=== PATIENT | female | born 1995 | race American Indian/Alaskan Native ===

== ENCOUNTER 2016-03-22 12:48 | Inpatient (IN) | payer MEDICAID ==
--- NOTE | 2016-03-22 14:49 | History and Physical Report ---
History of Present Illness Date of examination: 03/22/16 Date of admission: 03/22/16 12:48 Chief complaint: Pt sent from the office for BP management History of present illness: Pt is a 20yo BF EDC 06/24/16; EGA 26 4/ weeks sent from the office for BP management. BP was 146/98 in the office and complained of epigastric pains that has now resolved. She denies headaches or blurred vision, and was supposed to be taking Labetolol 100mg BID - but is non-compliant. She received care at [facility] since 12 weeks but has been non-compliant with her medications. She has a history of Preeclampsia with her previous , and also a previous C Section. records are available. Past History Past Medical History: hypertension, diabetes, seizure, hematologic disorders ( sickle cell trait) Past Surgical History: section Family/Genetic History: hypertension Social history: no significant social history, single - Obstetrical History Expected Date of Delivery: 06/24/16 Actual Gestation: 26 Week(s) 4 Day(s) : 2 Medications and Allergies Allergies Allergy/AdvReac Type Severity Reaction Status Date / Time shellfish derived Allergy Swelling Verified 09/12/13 15:34 Home Medications Medication Instructions Recorded Confirmed Last Taken Type Vit No.130/Iron/FA 1 each PO QDAY #30 tablet 11/26/15 Unknown Rx [ Tablet] Review of Systems All systems: negative - Vital Signs Vital signs: Vital Signs Pulse BP 87 116/58 03/22/16 13:28 03/22/16 13:28 Temp Pulse Resp BP Pulse Ox 98.0 F 87 18 116/58 03/22/16 14:38 03/22/16 14:38 03/22/16 14:38 03/22/16 14:38 - Physical Exam Breasts: Positive: deferred Cardiovascular: Regular rate Lungs: Positive: Clear to auscultation Abdomen: Positive: normal appearance Uterus: Positive: enlarged Extremities: Positive: normal - Obstetrical FHR: category 1 Uterine Contraction Monitor Mode: External Results All other labs normal. Assessment and Plan - Patient Problems (1) Preeclampsia Diagnosis Date: 03/22/16 Current Visit: No Status: Suspected Qualifiers: Trimester: second trimester Qualified Code(s): O14.92 - Unspecified pre- eclampsia, second trimester (2) 26 weeks gestation of Diagnosis Date: 03/22/16 Current Visit: Yes Status: Acute Plan to address problem: A: IUP @ 26 4/7 weeks Chronic hypertension Suspect superimposed preeclampsia P: Admit for Observation and BP management Obtain CBC, PIH labs, 24hr urine for protein APA consultation
[2016-03-22] MEDS ORDERED: TYLENOL PO PRN (15:03)
[2016-03-22] MEDS ORDERED: MILK OF MAGNESIA PO PRN (15:03)
[2016-03-22] MEDS ORDERED: SENOKOT S PO PRN (15:03)
[2016-03-22] MEDS ORDERED: AMBIEN PO PRN (15:03)
[2016-03-22] MEDS ORDERED: COLACE PO PRN (15:03)
[2016-03-22] MEDS ORDERED: ZOFRAN IV PRN (15:03)
[2016-03-22] MEDS ORDERED: LACTATED RINGERS 1,000 ML IV SCH (16:00)
[2016-03-22] MEDS: CELESTONE SOLUSPAN IM SCH (18:12)
[2016-03-22 22:35] LABS: Basophils % (Auto) 0.1 % (0.0-1.8); Eosinophils % (Auto) 0.5 % (0.0-4.3); Hematocrit 35.4 % (30.3-42.9); Hemoglobin 11.8 gm/dl (10.1-14.3); Mean Corpuscular HGB Conc 33 % (30-34); Mean Corpuscular Hemoglobin 28 pg (28-32); Mean Corpuscular Volume 83 fl (79-97); Platelet Count 212 K/mm3 (140-440); Red Blood Count 4.29 M/mm3 (3.65-5.03); Red Cell Distribution Width 14.1 % (13.2-15.2); White Blood Count 9.8 K/mm3 (4.5-11.0)
[2016-03-22] MEDS: NORMODYNE PO SCH (22:48)
[2016-03-22 23:02] LABS: Alanine Aminotransferase 11 units/L (7-56); Albumin/Globulin Ratio 0.8 %; Alkaline Phosphatase 73 units/L (35-129); Anion Gap 20 mmol/L; Bilirubin,Total 0.2 mg/dL (0.1-1.2); Blood Urea Nitrogen 5 mg/dL (7-17); Calcium 8.7 mg/dL (8.4-10.2); Carbon Dioxide 18 mmol/L (22-30); Chloride 101.7 mmol/L (98-107); Glucose 112 mg/dL (65-100); Potassium 4.3 mmol/L (3.6-5.0); Sodium 135 mmol/L (137-145); Total Protein 6.6 g/dL (6.3-8.2)
--- NOTE | 2016-03-23 09:12 | Admit Criteria Form ---
Admission Criteria Documentation: OBSTETRIC AND GYNECOLOGIC DISEASE GRG Clinical Indications for Admission to Inpatient Care (Place 'X' for any and all applicable criteria): Hospital admission is needed for appropriate care of the patient because of ANY ONE of the following (1)(2)(3): [ ]I. Hemodynamic instability, as indicated by ALL of the following (1)(2)(3)( 4)(5): [ ]a) Vital signs or other findings not as expected for chronic patient condition or baseline [ ]b) Instability indicated by ANY ONE of the following: [ ]i) Hypotension [ ]ii) Symptomatic tachycardia unresponsive to treatment (eg, analgesia, fluids, sedation as indicated) [ ]iii) Inadequate perfusion indicated by ANY ONE of the following: [ ]A. Lactic acidosis (greater than 2 mmol/ L) [ ]B. New abnormal capillary refill ( greater than 3 seconds) [ ]C. Reduced urine output [ ]D. New altered mental status [ ]iv) Orthostatic vital sign changes unresponsive to treatment (eg, fluids) [ ]v) Multiple IV fluid boluses required to maintain adequate blood pressure or perfusion [ ]vi) IV inotropic or vasopressor medication required to maintain adequate blood pressure or perfusion [ ]II. Obstetric infection requiring hospitalization indicated by ANY ONE of the following(13)(14): [ ]a) Chorioamnionitis [ ]b) Endometritis (except mild endometritis) [ ]c) Pelvic abscess [ ]d) Peritonitis [ ]e) Septic pelvic thrombophlebitis [ ]III. Amniotic fluid or pulmonary embolism(4)(5)(6) [ ]IV. Suspected peritonitis or ectopic requiring monitoring beyond scope of 24 hours or observation care(7)(8) [ ]V. compromise requiring hospitalization indicated by ALL of the following(9)(10): [ ]a) compromise indicated by ANY ONE of the following(11): [ ]i) Abnormal heart rate monitoring [ ]ii) Abnormal contraction stress test [ ]iii) Abnormal biophysical profile [ ]iv) Abnormal Doppler flow in vessels (ie, Doppler velocimetry) (12) [ ]b) Persistence of compromise indicators during evaluation and observation monitoring [ ]. Ovarian hyperstimulation syndrome requiring hospitalization[A] indicated by ALL of the following(15): [ ]a) Recent ovarian stimulation with gonadotropins, or evidence on ultrasound of spontaneous emergence of large number of ovarian follicles [ ]b) Evidence of severe ovarian hyperstimulation syndrome indicated by ANY ONE of the following: [ ]i) Abdominal pain unresponsive to oral therapy [ ]ii) Acute respiratory distress syndrome [ ]iii) Electrolyte imbalance ( eg, hyponatremia, hyperkalemia) [ ]iv) Elevated liver enzymes [ ]v) Evidence of thromboembolism [ ]vi) Hemoconcentration (hematocrit greater than 45 % (0.45)) [ ]vii) Inability to maintain oral intake adequate to prevent hemoconcentration [ ]viii) Marked hypotension from baseline (eg, SBP 20 mmHg below patients usual pressure) [ ]ix) Oliguria or anuria [ ]x) Ovarian torsion [ ]xi) Pleural or pericardial effusion on x-ray or echocardiogram [ ]xii) Rapid increase in serum creatinine to greater than 1.2 mg/dL (106 micromoles/L) or creatinine clearance less than 50 mL/min/1.73m2 (0.84 mL/ sec/1.73m2) [ ]xiii) Ruptured ovarian cyst with hemorrhage [ ]xiv) Severe abdominal pain or peritoneal signs [ ]xv) Tense ascites that cannot be managed with paracentesis in outpatient setting [ ]VII.Pelvic infection requiring hospitalization indicated by ANY ONE of the following (16): [ ]a) Outpatient treatment has failed or is not appropriate (eg, inpatient monitoring required) [ ]b) Pelvic abscess [ ]c) Surgical emergency cannot be excluded (eg, rigid abdomen) [ ]d) Vomiting precluding outpatient and observation care management VIII. loss complications requiring inpatient medical treatment indicated by ANY ONE of the following (4)(7)(9): [ ]a) Fever [ ]b) Peritonitis [ ]c) Sepsis [ ]d) Severe abdominal pain [ ]IX. or patient requiring monitoring for severe heart failure, pulmonary disease, or other comorbid condition (eg, peripartum cardiomyopathy) (4)(17) [ ]X. patient with rupture of membranes requiring hospitalization indicated by ANY ONE of the following: [ ]a) Chorioamnionitis, cloudy amniotic fluid, or other evidence of infection [ ]b) compromise or other need for monitoring (11) [ ]c) Gestation longer than 23 weeks and ANY ONE of the following: [ ]i) Abnormal (noncephalic) presentation [ ]ii) Inadequate home environment (eg, home too far from hospital, unable to rapidly return to hospital) [ ]d) Temperature greater than 100.4 degrees F (38 degrees C)( oral) [ ]e) Threatened labor requiring monitoring beyond scope (eg, over 24 hours) of observation Care [ ] XI. complications, including severe lacerations, infections, or retained placenta (19) [ ] XII.Uterine bleeding with high-risk features indicated by ANY ONE of the following (4): [ ]a) Active major hemorrhage (eg, hemorrhage) [ ]b) Coagulopathy with active bleeding [ ]c) Gestational trophoblastic disease (eg, molar ) (20 ) [ ]d) (longer than 23 weeks) and ANY ONE of the following: [ ]i) Pain [ ]ii) Placental abruption, known or suspected [ ]iii) Placenta accrete, known or suspected(21) [ ]iv) Placenta previa, known or suspected [ ]v) Vasa previa [ ]e) Severe anemia [X ]XIII. Obstetric or Gynecologic Disease, condition or symptom for which ANY ONE of the following: [X ]a) Emergency and observation care have failed or are not considered appropriate ( Also use General Criteria: Observation Care Criteria as appropriate) [ ]b) Presence of a General Admission Criteria or Pediatric General Admission Criteria The original [facility] [employer] [facility] content [facility] by [facility] has been revised. The portions of the content which have been revised are identified through the use of italic text or in bold, and [facility] has neither reviewed nor approved the modified material.All other unmodified content is copyright [facility]. Please see references footnoted in the original [facility] edition 2016 Admission Criteria Met: Yes
[2016-03-23] MEDS: NORMODYNE PO SCH (09:54)
[2016-03-23] MEDS ORDERED: PRENATAL VITAMIN PO SCH (10:00)
--- NOTE | 2016-03-23 10:44 | Progress Note ---
Assessment and Plan - Patient Problems (1) Preeclampsia Diagnosis Date: 03/22/16 Current Visit: No Status: Suspected Qualifiers: Trimester: second trimester Qualified Code(s): O14.92 - Unspecified pre- eclampsia, second trimester (2) 26 weeks gestation of Diagnosis Date: 03/22/16 Current Visit: Yes Status: Acute Plan to address problem: A: IUP @ 26 5/7 weeks Chronic hypertension - stable on Labetolol 100mg BID Suspect superimposed preeclampsia - awaiting 24hr urine P: Continue present management Awaiting results of 24hr urine Subjective - Subjective Date of service: 03/23/16 Principal diagnosis: IUP @ 26 5/7 weeks; Chronic hypertension; Suspect superimposed preeclampsia Interval history: Pt is feeling well without complaints. She denies headaches, blurred vision or epigastric pains. BP's 100-130/52-61 on Labetolol 100mg BID. Patient reports: movement normal, no new complaints, no loss of fluid, no vaginal bleeding, no contractions Objective - Vital Signs Vital Signs: Vital Signs - 12hr 03/22/16 03/22/16 03/23/16 22:48 22:56 01:34 Temperature Pulse Rate 84 89 Pulse Rate [ From Monitor] Respiratory 20 Rate Blood Pressure 129/58 129/66 Blood Pressure [Left Arm] 03/23/16 03/23/16 03/23/16 03:34 05:41 07:59 Temperature Pulse Rate 81 73 86 Pulse Rate [ From Monitor] Respiratory Rate Blood Pressure 100/52 119/60 130/61 Blood Pressure [Left Arm] 03/23/16 03/23/16 08:19 10:35 Temperature 98.2 F Pulse Rate 95 H Pulse Rate [ 86 From Monitor] Respiratory 18 Rate Blood Pressure 115/56 Blood Pressure 130/61 [Left Arm] - Exam Cardiovascular: Regular rate Abdomen: Present: normal appearance, soft Uterus: Present: normal FHR: category 1 Uterine Contraction Monitor Mode: External - Labs Labs: Abnormal Labs 03/22/16 03/22/16 21:27 21:27 Seg Neutrophils % 81.7 H Seg Neutrophils # 8.0 H Sodium 135 L Carbon Dioxide 18 L BUN 5 L Creatinine 0.5 L Glucose 112 H Albumin 3.0 L Laboratory Results - last 24 hr 03/22/16 03/22/16 03/22/16 21:27 21:27 21:27 WBC 9.8 RBC 4.29 Hgb 11.8 Hct 35.4 MCV 83 MCH 28 MCHC 33 RDW 14.1 Plt Count 212 Lymph % (Auto) 13.6 P[place] % (Auto) 4.1 Eos % (Auto) 0.5 Baso % (Auto) 0.1 Lymph # 1.3 Pinal # 0.4 Eos # 0.0 Baso # 0.0 Seg Neutrophils % 81.7 H Seg Neutrophils # 8.0 H Sodium 135 L Potassium 4.3 Chloride 101.7 Carbon Dioxide 18 L Anion Gap 20 BUN 5 L Creatinine 0.5 L Estimated GFR > 60 BUN/Creatinine Ratio 10.00 Glucose 112 H Calcium 8.7 Total Bilirubin 0.2 AST 17 ALT 11 Alkaline Phosphatase 73 Total Protein 6.6 Albumin 3.0 L Albumin/Globulin Ratio 0.8 Blood Type O POSITIVE Antibody Screen Negative
[2016-03-23] MEDS: CELESTONE SOLUSPAN IM SCH (18:17)
[2016-03-23 18:35] VITALS: BP 190/95
--- NOTE | 2016-03-23 19:09 | Discharge Summary ---
Providers - Providers Date of Admission: 03/22/16 12:48 Date of discharge: 03/23/16 Attending physician: ANDREA VALE MD 03/22/16 15:03 Consult to Physician [CONS] Routine Consulting Provider: HALINA MAIER Reason For Exam: IUP @ 26 weeks; Chronic hypertension Place consult to:: DAVIDSON Notified:: ALETHEA Phone number called:: [phone] Was contact made?: Yes If yes, spoke with:: Alethea Time called:: 15:09 Primary care physician: ANDREA VALE MD Hospitalization Reason for admission: IUP - , observation, other (Chronic hypertension) Other procedures: none complications: none Discharge diagnosis: other (IUP @ 26 5/7 weeks; Chronic hypertension - improved ) Hospital course: Pt is a 20yo BF EDC 06/24/16; EGA 26 5/7 weeks who was sent from the office for BP management. BP was 146/98 in the office and complained of epigastric pains that has now resolved. She denied headaches or blurred vision , and was supposed to be taking Labetolol 100mg BID - but is non-compliant. She received care at [facility] since 12 weeks but has been non- compliant with her medications. She has a history of Preeclampsia with her previous , and also a previous C Section. She was admitted for BP monitoring and BP remained stable, PIH labs were WNL and 24hr urine had 245mg protein. Discussed with Dr Zavaleta to discharge pt to home in stable condition. Labetolol changed to Aldomet 250mg BID. She will follow up in [facility]'s office in 4 days. Condition at discharge: Good Disposition: DISCHARGED TO HOME OR SELFCARE - Discharge Diagnoses (1) Preeclampsia Status: Suspected Qualifiers: Trimester: second trimester Qualified Code(s): O14.92 - Unspecified pre- eclampsia, second trimester (2) 26 weeks gestation of Status: Acute Plan - Discharge Medications Prescriptions: Methyldopa [Aldomet] 250 mg PO BID #60 tablet - Provider Discharge Summary Activity: routine, no sex for 6 weeks, no heavy lifting 4 weeks, no strenuous exercise Diet: routine Instructions: routine Additional instructions: [] Smoking cessation referral if applicable(refer to patient education folder for contact #) [] Refer to [facility] Booklet Call your doctor immediately for: * Fever > 100.5 * Heavy vaginal bleeding ( >1 pad per hour) * Severe persistent headache * Shortness of breath * Reddened, hot, painful area to leg or breast * Drainage or odor from incision. * Keep incision clean and dry at all times and follow doctor's instructions regarding bathing/showering - Follow up plan Follow up: ANDREA TRACY MD [Primary Care Provider] - 3 Days
== END 2016-03-23 19:04 | disposition home or self-care (01) | DRG 781 ==
LOC: OBSVTOIN 12:48 → LD 12:48
PROVIDERS: ADMIT Obstetrics & Gynecology; ATTEND Obstetrics & Gynecology
DX: O11.2 Pre-existing hypertension with pre-eclampsia, second trimester (principal); O24.312 Unspecified pre-existing diabetes mellitus in pregnancy, second trimester; E11.9 Type 2 diabetes mellitus without complications; O99.352 Diseases of the nervous system complicating pregnancy, second trimester; O99.012 Anemia complicating pregnancy, second trimester; D57.3 Sickle-cell trait; O34.219 Maternal care for unspecified type scar from previous cesarean delivery; R10.13 Epigastric pain; O26.892 Other specified pregnancy related conditions, second trimester; Z3A.26 26 weeks gestation of pregnancy; Z91.19 Patient's noncompliance with other medical treatment and regimen; Z91.013 Allergy to seafood; O10.912 Unspecified pre-existing hypertension complicating pregnancy, second trimester
CPT/HCPCS: 36415; 80053; 84156; 85025; 86850; 86900; 86901; J0702; J7120

== ENCOUNTER 2016-05-06 20:55 | Outpatient (CLI) | payer MEDICAID ==
[2016-05-06] MEDS ORDERED: LACTATED RINGERS 500 ML IV ONE (20:57)
[2016-05-06 22:30] LABS: Bilirubin,Urine NEG (Negative); Blood,Urine NEG (Negative); Ketones,Urine NEG (Negative); Leukocyte Esterase,Urine NEG (Negative); Mucus,Urine FEW /HPF; Nitrite,Urine NEG (Negative); Protein,Urine <15 mg/dL mg/dL (Negative); Urobilinogen,Urine < 2.0 mg/dL (<2.0)
[2016-05-06 22:31] VITALS: BP 101/57
[2016-05-06] MEDS ORDERED: VISTARIL PO ONE (22:42)
== END 2016-05-06 22:56 | disposition home or self-care (01) ==
LOC: TRG 20:55
PROVIDERS: ATTEND Obstetrics & Gynecology
DX: O26.893 Other specified pregnancy related conditions, third trimester (principal); O21.2 Late vomiting of pregnancy; R10.9 Unspecified abdominal pain; R51 Headache; Z3A.37 37 weeks gestation of pregnancy
CPT/HCPCS: 59025; 81001; Q0177

== ENCOUNTER 2016-06-19 08:41 | Inpatient (IN) | payer MEDICAID ==
[2016-06-19] MEDS ORDERED: BICITRA PO NR (10:00)
[2016-06-19] MEDS ORDERED: REGLAN IV NR (10:00)
[2016-06-19] MEDS ORDERED: ANCEF/STERILE WATER 2 GM/20 ML 2 GM/20 ML SYRINGE IV NR (10:00)
[2016-06-19] MEDS ORDERED: PITOCin/NS 20 UNIT/1000ML DRIP 20 UNITS/1,000 ML BAG IV SCH ×2 (10:00→14:00)
[2016-06-19] MEDS ORDERED: PEPCID IV NR (10:00)
[2016-06-19 10:03] LABS: Basophils % (Auto) 0.2 % (0.0-1.8); Eosinophils % (Auto) 0.5 % (0.0-4.3); Hemoglobin 11.2 gm/dl (10.1-14.3); Mean Corpuscular HGB Conc 33 % (30-34); Mean Corpuscular Hemoglobin 27 pg (28-32); Mean Corpuscular Volume 82 fl (79-97); Platelet Count 194 K/mm3 (140-440); Red Blood Count 4.13 M/mm3 (3.65-5.03); Red Cell Distribution Width 14.5 % (13.2-15.2); White Blood Count 7.3 K/mm3 (4.5-11.0)
--- NOTE | 2016-06-19 10:48 | Anesthesia Consultation ---
Anesthesia Consult and Med Hx Date of service: 06/19/16 - Airway Anesthetic Teeth Evaluation: Good ROM Head & Neck: Adequate Mallampati Class: Class III Intubation Access Assessment: Possibly Difficult - Pre-Operative Health Status ASA Pre-Surgery Classification: ASA3 Proposed Anesthetic Plan: Epidural, Spinal - Pulmonary Hx Asthma: No COPD: No Hx Pneumonia: No - Cardiovascular System Hx Hypertension: Yes (was taking labetalol, then stopped) - Central Nervous System Hx Seizures: No Hx Psychiatric Problems: No - Endocrine Hx Renal Disease: No Hx End Stage Renal Disease: No Hx Non-Insulin Dependent Diabetes: Yes (gestational) Hx Hypothyroidism: No Hx Hyperthyroidism: No - Hematic Hx Anemia: No Hx Sickle Cell Disease: No - Other Systems Hx Alcohol Use: No Hx Obesity: Yes (BMI 64)
--- NOTE | 2016-06-19 10:49 | Anesthesia Day of Surgery ---
Anesthesia Day of Surgery - Day of Surgery Patient Examined: Yes Patient H&P Reviewed: Yes Patient is NPO: Yes
[2016-06-19] MEDS: LACTATED RINGERS 1,000 ML IV SCH ×2 (10:59→11:00)
[2016-06-19] MEDS ORDERED: SODIUM CHLORIDE FLUSH SYRINGE 10 ML IV PRN (11:00)
--- NOTE | 2016-06-19 11:05 | History and Physical Report ---
History of Present Illness Date of examination: 06/19/16 Date of admission: 06/19/16 08:41 Chief complaint: Repeat C Section History of present illness: Pt is a 20yo BF EDC 06/24/16; EGA 39 2/7 weeks presents to L&D for a Repeat C Section. She received care at [facility] since 12 weeks and was treated for Chronic Hypertension and started on Labetolol 100mg BID which she discontinued on her own in March 2016. course has been unremarkable except for Morbid Obesity, and baby is for adoption. records are available, and GBS is positive. 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 History: chlamydia, herpes, trichomonas Family/Genetic History: hypertension, other (seizure disorder) Social history: no significant social history, single - Obstetrical History Expected Date of Delivery: 06/24/16 Actual Gestation: 39 Week(s) 2 Day(s) : 2 Medications and Allergies Allergies Allergy/AdvReac Type Severity Reaction Status Date / Time shellfish derived Allergy Swelling Verified 09/12/13 15:34 Home Medications Medication Instructions Recorded Confirmed Last Taken Type Vit No.130/Iron/FA 1 each PO QDAY #30 tablet 11/26/15 Unknown Rx [ Tablet] Methyldopa [Aldomet] 250 mg PO BID #60 tablet 03/23/16 Unknown Rx Ferrous Sulfate [Feosol 325 MG tab] 325 mg PO BID #60 tablet 06/19/16 Unknown Rx HYDROcodone/APAP 5-325 [Paicines 1 each PO Q6HR PRN #30 tablet 06/19/16 Unknown Rx 5/325] Ibuprofen [Motrin] 800 mg PO Q8HR PRN #30 tablet 06/19/16 Unknown Rx Vit W-Ca,Fe,FA(<1 mg) 1 each PO DAILY #30 tablet 06/19/16 Unknown Rx [ Vitamins] Active Meds: Active Medications Citric Acid/Sodium Citrate (Bicitra) 30 ml PO ONCE NR Stop: 06/19/16 18:00 Diphenhydramine HCl (Benadryl) 12.5 mg IV Q2H PRN PRN Reason: Itching Famotidine (Pepcid) 20 mg IV ONCE NR Stop: 06/19/16 18:00 Hydromorphone HCl (Dilaudid) 0.5 mg IV Q4H PRN PRN Reason: breakthrough pain > 7/10 Cefazolin Sodium (Ancef/Sterile Water 2 Gm/20 Ml) 2 gm in 20 mls @ 80 mls/hr IV PREOP NR PRN Reason: Protocol Stop: 06/19/16 18:00 Lactated Ringer's (Lactated Ringers) 1,000 mls @ 2,250 mls/hr IV PREOP STANLEY Stop: 06/20/16 10:27 Last Admin: 06/19/16 11:00 Dose: 2,250 mls/hr Oxytocin/Sodium Chloride (Pitocin/Ns 20 Unit/1000ml Drip) 20 units in 1,000 mls @ 0 mls/hr IV TITR STANLEY PRN Reason: As Directed Influenza Virus Vaccine Quadrival (Fluarix Quad [id number](36 Mos+)) 60 mcg IM .ONCE ONE Stop: 06/19/16 10:39 Ketorolac Tromethamine (Toradol) 30 mg IV Q6H PRN PRN Reason: Pain, Moderate (4-6) Stop: 06/24/16 10:48 Metoclopramide HCl (Reglan) 10 mg IV ONCE NR Stop: 06/19/16 18:00 Naloxone HCl (Narcan 0.4 Mg/1 Ml) 0.2 mg IV Q2MIN PRN PRN Reason: Res Rate </= 8 or 02 SAT < 92% Stop: 06/21/16 10:50 Ondansetron HCl (Zofran) 4 mg IV Q8H PRN PRN Reason: Nausea And Vomiting Sodium Chloride (Sodium Chloride Flush Syringe 10 Ml) 10 ml IV PRN NR Review of Systems All systems: negative - Vital Signs Vital signs: Vital Signs Pulse BP 81 108/82 06/19/16 09:36 06/19/16 09:36 Temp Pulse Resp BP Pulse Ox 97.8 F 89 20 108/82 99 06/19/16 10:31 06/19/16 10:41 06/19/16 10:31 06/19/16 10:31 06/19/16 10:41 - Physical Exam Breasts: Positive: deferred Cardiovascular: Regular rate Lungs: Positive: Clear to auscultation Abdomen: Positive: normal appearance, soft Genitourinary (Female): Positive: normal external genitalia Uterus: Positive: enlarged Extremities: Positive: normal - Obstetrical FHR: category 1 Results Result Diagrams: 06/19/16 09:52 Abnormal lab results 06/19/16 Range/Units 09:52 MCH 27 L (28-32) pg [place] % (Auto) 8.6 H (0.0-7.3) % All other labs normal. Assessment and Plan - Patient Problems (1) 39 weeks gestation of Onset Date: 06/19/16 Current Visit: Yes Status: Acute Plan to address problem: A: IUP @ 39 2/7 weeks Previous C Section Morbid Obesity Chronic hypertension - not on meds GBS Positive P: Admit to L&D for Repeat C Section (2) Previous delivery affecting Onset Date: 06/19/16 Current Visit: Yes Status: Acute (3) Morbid obesity Onset Date: 06/19/16 Current Visit: No Status: Chronic Qualifiers: Obesity type: unspecified obesity type Qualified Code(s): E66.01 - Morbid ( severe) obesity due to excess calories
[2016-06-19] MEDS ORDERED: MORPHINE ONE (11:28)
[2016-06-19] MEDS ORDERED: ePHEDrine SULFATE ONE (11:49)
[2016-06-19] MEDS ORDERED: TORADOL IV PRN (12:00)
[2016-06-19] MEDS ORDERED: DILAUDID IV PRN (12:00)
[2016-06-19] MEDS ORDERED: ZOFRAN IV PRN (12:00)
[2016-06-19] MEDS ORDERED: NARCAN 0.4 MG/1 ML IV PRN ×2 (12:00→13:09)
[2016-06-19] MEDS ORDERED: NACL 0.9% IR ONE (12:03)
[2016-06-19] MEDS ORDERED: WATER FOR IRRIG STERILE IR ONE (12:03)
[2016-06-19] MEDS ORDERED: NACL 0.9% 1000 ML 1,000 ML ONE ×2 (12:10→12:55)
[2016-06-19] MEDS ORDERED: ZOFRAN ONE (12:20)
--- NOTE | 2016-06-19 13:04 | Operative Report ---
Operative Report Operative Report: Date of procedure: 06/19/2016 Pre-operative diagnosis: 1. Intrauterine at 39-2/7 weeks 2. Previous section 3. Chronic hypertension 4. Morbid obesity 5. Positive group B strep Post-operative diagnosis: Same Procedure name(s): Repeat low transverse section Surgeon: Gary Rock MD Guest Specialist: None Anesthesia: Spinal anesthesia by Dr. Clifford EBL: 600 mL's Findings: A 3230 g male Apgars 8 at 1 minute 9 at 5 minutes. Nuchal cord 1. Clear amniotic fluid. Normal uterus. Normal tubes and ovaries bilaterally. Procedure: After the patient was prepped and draped in usual sterile fashion, and after satisfactory level of epidural anesthesia was obtained, the skin knife was used to make a transverse skin incision through the previous skin scar. The incision was excised down to layer of the fascia, which was nicked in the midline and extended laterally using the Bovie cautery. The rectus muscles were dissected off the rectus fascia both superiorly and inferiorly. The rectus bellies in the midline, and the peritoneum was entered under direct visualization. The peritoneal incision was extended superiorly and inferiorly. A bladder flap was created and the bladder blade was then placed. The uterus was scored in a curvilinear linear fashion, entered in the midline revealing clear amniotic fluid. The infant's head was delivered onto the surgical field with the aid of a vacuum (1 pull, no pop-offs), nuchal cord 1 easily reduced and the oropharynx and nasopharynx were bulb suctioned. The rest of the 's body was delivered, cord was doubly clamped and cut and the infant was handed to the waiting respiratory team. Cord blood was then obtained. The placenta was manually removed from the uterus, and the uterus removed from its normal anatomical position. After gentle uterine lavage, the incision was inspected and found to be without extensions. It was then closed in 2 layers using 0 Vicryl suture in a running interlocking fashion, the second layer imbricating the first. After good hemostasis was achieved, copious amounts or irrigation was performed, and the gutters were suctioned free of blood and blood clots. The Tisseel sealant was sprayed across the uterine incision. The uterus was then returned to its normal anatomical position, and after excellent hemostasis assured, the peritoneum was reapproximated using 3-0 Vicryl suture in a running interlocking fashion, and then the rectus muscles were reapproximated using 3-0 Vicryl suture in a [id number] configuration. The fascia was then reapproximated using 0 Vicryl suture in running interlocking fashion. The subcutaneous layer was made hemostatic using Bovie cautery, and reapproximated using 3-0 Vicryl suture in a running interlocking fashion, the Tisseel sealant was sprayed across the fascial incision and the skin edges reapproximated using 4-0 Vicryl suture in a subcuticular fashion. Patient tolerated the procedure well was transported to recovery in stable condition.
[2016-06-19] MEDS ORDERED: PHENERGAN PR PRN (13:09)
[2016-06-19] MEDS ORDERED: NORCO 5/325 PO PRN (13:09)
[2016-06-19] MEDS ORDERED: MILK OF MAGNESIA PO PRN (13:09)
[2016-06-19] MEDS ORDERED: SENOKOT PO PRN (13:09)
[2016-06-19] MEDS ORDERED: TYLENOL PO PRN (13:09)
[2016-06-19] MEDS ORDERED: LANSINOH TP PRN (13:09)
[2016-06-19] MEDS ORDERED: TUCKS PAD TP PRN (13:09)
[2016-06-19] MEDS ORDERED: MYLICON PO PRN (13:09)
[2016-06-19] MEDS: BENADRYL IV PRN ×3 (13:56→20:18)
[2016-06-19] MEDS ORDERED: SODIUM CHLORIDE FLUSH SYRINGE 10 ML IV NR (14:00)
[2016-06-19] MEDS: TORADOL IV PRN (16:46)
[2016-06-19] MEDS: D5LR 1,000 ML IV SCH (21:52)
[2016-06-19] MEDS: ANCEF/NS 1 GM/50 ML 1 GM/50 ML BAG IV SCH (21:53)
[2016-06-19] MEDS ORDERED: BENADRYL IV ONE (22:00)
[2016-06-19] MEDS: PERCOCET 5/325 PO PRN (23:25)
[2016-06-20] MEDS: BENADRYL IV PRN (01:24)
[2016-06-20 01:59] LABS: Hematocrit 34.2 % (30.3-42.9)
[2016-06-20] MEDS ORDERED: ANCEF/NS 1 GM/50 ML 1 GM/50 ML BAG IV SCH (04:00)
[2016-06-20] MEDS: ANCEF/NS 1 GM/50 ML 1 GM/50 ML BAG IV SCH (05:54)
[2016-06-20] MEDS: PERCOCET 5/325 PO PRN ×3 (05:56→17:04)
[2016-06-20] MEDS ORDERED: BOOSTRIX IM ONE ×2 (06:30→13:10)
[2016-06-20] MEDS: D5LR 1,000 ML IV SCH (07:11)
[2016-06-20] MEDS: TORADOL IV PRN (08:18)
[2016-06-20] MEDS: BENADRYL PO PRN ×2 (11:17→17:59)
--- NOTE | 2016-06-20 11:18 | Progress Note ---
Assessment and Plan A: POD1 Stable, VSS Pain medication changed to q4 hrs P: Routine post op care Adoptive parents with baby Plans for Mirena for contraception Sundown changed to q4 hours Subjective - Subjective Date of service: 06/20/16 Principal diagnosis: POD1 Interval history: uneventful Patient reports: voiding normally, ambulating normally, no flatus : doing well Objective - Vital Signs Latest vital signs: Vital Signs Temp Pulse Pulse Resp BP BP Pulse Ox 06/20/16 08:18 20 06/20/16 08:15 98.1 F 100 H 20 114/64 06/20/16 05:00 98.7 F 97 H 20 148/68 06/20/16 00:40 98.1 F 101 H 20 149/61 06/19/16 22:40 97.6 F 102 H 20 134/55 06/19/16 16:32 98.2 F 106 H 20 136/87 06/19/16 14:45 96.8 F L 89 20 146/86 06/19/16 14:08 106 H 21 133/72 97 06/19/16 13:53 99 H 28 H 143/80 99 06/19/16 13:38 99 H 20 129/74 99 06/19/16 13:23 105 H 30 H 127/68 97 06/19/16 13:18 103 H 27 H 127/70 98 06/19/16 13:13 103 H 25 H 122/67 98 06/19/16 13:08 97.5 F L 101 H 18 116/63 97 Intake and Output 06/19/16 06/20/16 06/20/16 22:59 06:59 14:59 Intake Total 785 1615 Output Total 400 Balance 385 1615 Intake: IV 425 1375 ANCEF/NS 1 GM/50 ML 1 gm 50 In 50 ml @ 100 mls/hr IV Q8H STANLEY Rx#:[id number] D5lr 1,000 ml @ 125 mls/ 125 1375 hr IV DIRECT STANLEY Rx#: [id number] PITOCin/NS 20 UNIT/1000ML 250 DRIP 20 units In 1,000 ml @ 250 mls/hr IV DIRECT STANLEY Rx#:[id number] Oral 360 Intake, Free Water 240 Output: Urine 400 Indwelling Catheter 400 Other: Total, Intake Amount 240 Total, Output Amount 400 - Exam Cardiovascular: Present: Regular rate Lungs: Present: Normal air movement Vulva: both: normal (scant lochia) Uterus: Present: fundal height below umbilicus Incision: Present: normal, dry, dressed
[2016-06-20] MEDS ORDERED: FLUARIX QUAD 2016-2017(36 MOS+) IM ONE (12:00)
[2016-06-20] MEDS ORDERED: M-M-R II VACCINE SUB-Q ONE (13:10)
--- NOTE | 2016-06-20 15:56 | Progress Note ---
Subjective Date of service: 06/20/16 Principal diagnosis: POD1 Interval history: 1st POD after Patient is in the bed, comfortably sleeping. Pain is well controlled with pain meds. Ambulated well. Pruritus is mostly under control with benadryl. No residual neurological deficit. No anesthesia complications Objective - Constitutional Vitals: Vital Signs - 12hr 06/20/16 06/20/16 06/20/16 05:00 08:15 08:18 Temperature 98.7 F 98.1 F Pulse Rate [ 97 H 100 H Right From Monitor] Respiratory 20 20 20 Rate Blood Pressure 148/68 114/64 [Right Arm] - Labs CBC & Chem 7: 06/20/16 00:34
[2016-06-20] MEDS: MOTRIN PO PRN (17:04)
[2016-06-21] MEDS: PERCOCET 5/325 PO PRN ×3 (00:02→18:30)
[2016-06-21] MEDS: BENADRYL PO PRN ×2 (00:08→06:03)
[2016-06-21] MEDS: TORADOL IV PRN (07:53)
[2016-06-21] MEDS: PRENATAL VITAMIN PO SCH (10:19)
[2016-06-21] MEDS: FEOSOL PO SCH (10:19)
[2016-06-21] MEDS ORDERED: TORADOL IM PRN ×2 (11:16→11:49)
[2016-06-21] MEDS ORDERED: DEPO-PROVERA (CONTRACEPTION) IM ONE (11:47)
--- NOTE | 2016-06-21 11:51 | Progress Note ---
Assessment and Plan A: POD #2 Stable P: Follow Routine PostOp Orders D/C home in the AM Depo Provera prior to discharge/ Plans Mirena at 6 Weeks RTO in One Week Subjective - Subjective Date of service: 06/21/16 Principal diagnosis: POD1 Patient reports: appetite normal, voiding normally, pain well controlled, flatus , ambulating normally [place]: doing well Objective - Vital Signs Latest vital signs: Vital Signs Temp Pulse Resp BP 06/21/16 09:07 98.9 F 105 H 20 138/79 06/21/16 07:53 20 06/21/16 06:02 20 06/21/16 00:02 20 06/20/16 23:04 98.6 F 102 H 20 138/55 06/20/16 17:04 20 06/20/16 16:10 98.2 F 88 20 138/72 Intake and Output 06/20/16 06/21/16 06/21/16 22:59 06:59 14:59 Intake Total 960 Balance 960 Intake: Oral 600 Intake, Free Water 360 Other: Total, Intake Amount 240 # Voids Void 1 1 - Exam Breasts: Present: normal Cardiovascular: Present: Regular rate Lungs: Present: Clear to auscultation, Normal air movement Abdomen: Present: normal appearance, soft, normal bowel sounds Uterus: Present: normal, firm, fundal height below umbilicus Extremities: Present: normal Incision: Present: normal, dry
--- NOTE | 2016-06-21 11:52 | Discharge Summary ---
Providers - Providers Date of Admission: 06/19/16 08:41 Date of discharge: 06/22/16 Attending physician: ANDREA VALE MD Primary care physician: ANDREA VALE MD Hospitalization Reason for admission: section Delivery: Procedure: repeat low transverse Episiotomy: none Laceration: none Incision: normal, dry, intact Other procedures: none complications: none [place] baby: male Condition at discharge: Poor Disposition: DISCHARGED TO HOME OR SELFCARE Plan - Discharge Medications Prescriptions: Ferrous Sulfate [Feosol 325 MG tab] 325 mg PO BID #60 tablet HYDROcodone/APAP 5-325 [[place] 5/325] 1 each PO Q6HR PRN #30 tablet PRN Reason: Pain Ibuprofen [Motrin] 800 mg PO Q8HR PRN #30 tablet PRN Reason: Moder Pain Unrelieved By [place] Vit W-Ca,Fe,FA(<1 mg) [ Vitamins] 1 each PO DAILY #30 tablet - Provider Discharge Summary Activity: routine, no sex for 6 weeks, no heavy lifting 4 weeks, no strenuous exercise Diet: routine Instructions: routine Additional instructions: [] Smoking cessation referral if applicable(refer to patient education folder for contact #) [] Refer to [facility] Book[facility] Call your doctor immediately for: * Fever > 100.5 * Heavy vaginal bleeding ( >1 pad per hour) * Severe persistent headache * Shortness of breath * Reddened, hot, painful area to leg or breast * Drainage or odor from incision. * Keep incision clean and dry at all times and follow doctor's instructions regarding bathing/showering - Follow up plan Follow up: SURESH PERALTA CNM [Advanced Practice Nurse] - 7 Days
[2016-06-21] MEDS: MOTRIN PO PRN ×2 (14:00→22:03)
[2016-06-22] MEDS: BENADRYL PO PRN ×2 (00:01→06:09)
[2016-06-22] MEDS: PERCOCET 5/325 PO PRN ×2 (06:08)
[2016-06-22] MEDS ORDERED: DEPO-PROVERA (CONTRACEPTION) IM ONE ×2 (08:56→09:30)
[2016-06-22] MEDS: FEOSOL PO SCH (09:16)
[2016-06-22] MEDS: PRENATAL VITAMIN PO SCH (09:17)
[2016-06-22 11:40] VITALS: BP 123/70
== END 2016-06-22 13:20 | disposition home or self-care (01) | DRG 765 ==
LOC: APU 08:41 → OB 14:27
PROVIDERS: ADMIT Obstetrics & Gynecology; ATTEND Obstetrics & Gynecology
PROC: 10D00Z1 Extraction of Products of Conception, Low, Open Approach (ICD-10-PCS; principal; 2016-06-19)
PROC: 3E0234Z Introduction of Serum, Toxoid and Vaccine into Muscle, Percutaneous Approach (ICD-10-PCS; 2016-06-20)
DX: O34.211 Maternal care for low transverse scar from previous cesarean delivery (principal); O10.02 Pre-existing essential hypertension complicating childbirth; Z68.44 Body mass index [BMI] 60.0-69.9, adult; N85.8 Other specified noninflammatory disorders of uterus; O99.214 Obesity complicating childbirth; E66.01 Morbid (severe) obesity due to excess calories; O99.824 Streptococcus B carrier state complicating childbirth; Z3A.39 39 weeks gestation of pregnancy; Z37.0 Single live birth; Z82.49 Family history of ischemic heart disease and other diseases of the circulatory system; Z91.013 Allergy to seafood; Z23 Encounter for immunization
CPT/HCPCS: 36415; 85014; 85018; 85025; 86850; 86900; 86901; 90471; 90686; A6250; C9250; J0690; J1050; J1200; J1885; J2270; J2405; J2590; J2765; J7030; J7120; J7121

== ENCOUNTER 2016-07-07 03:24 | Emergency (ER) | payer MEDICAID ==
[2016-07-07 03:55] VITALS: BP 112/86
[2016-07-07 04:37] LABS: Basophils % (Auto) 0.3 % (0.0-1.8); Eosinophils % (Auto) 1.6 % (0.0-4.3); Hematocrit 36.6 % (30.3-42.9); Hemoglobin 11.7 gm/dl (10.1-14.3); Mean Corpuscular HGB Conc 32 % (30-34); Mean Corpuscular Hemoglobin 26 pg (28-32); Mean Corpuscular Volume 82 fl (79-97); Platelet Count 275 K/mm3 (140-440); Red Blood Count 4.45 M/mm3 (3.65-5.03); Red Cell Distribution Width 14.7 % (13.2-15.2); White Blood Count 7.9 K/mm3 (4.5-11.0)
[2016-07-07 04:43] LABS: Alanine Aminotransferase 10 units/L (7-56); Albumin 3.8 g/dL (3.9-5); Albumin/Globulin Ratio 1.4 %; Alkaline Phosphatase 107 units/L (35-129); Anion Gap 16 mmol/L; BUN/Creatinine Ratio 12.22; Bilirubin,Total 0.3 mg/dL (0.1-1.2); Blood Urea Nitrogen 11 mg/dL (7-17); Carbon Dioxide 26 mmol/L (22-30); Chloride 101.4 mmol/L (98-107); Glucose 97 mg/dL (65-100); Lipase 29 units/L (13-60); Potassium 3.8 mmol/L (3.6-5.0); Sodium 140 mmol/L (137-145); Total Protein 6.6 g/dL (6.3-8.2)
== END 2016-07-07 04:50 | disposition left against medical advice (07) ==
LOC: ED 03:24
DX: R10.10 Upper abdominal pain, unspecified (principal); M54.5 Low back pain; Z53.21 Procedure and treatment not carried out due to patient leaving prior to being seen by health care provider
CPT/HCPCS: 36415; 80053; 83690; 85025

== ENCOUNTER 2017-05-20 23:29 | Emergency (ER) | payer MEDICAID ==
--- NOTE | 2017-05-20 23:46 | Emergency Department Report ---
ED Shortness of Breath HPI - General Chief Complaint: Dyspnea/Respdistress Stated Complaint: JOSHUA Time Seen by Provider: 05/20/17 23:42 Source: patient Mode of arrival: Stretcher Limitations: No Limitations - History of Present Illness Initial Comments: Patient is 21 years old female with history of gestational diabetes and panic attack. Patient presented via EMS for evaluation of sudden onset of shortness of breath and tightness in her chest with generalized numbness and fainting. Patient stated that she just have an argument with her boyfriend. Patient denied any fever, cough, nausea or vomiting. MD Complaint: shortness of breath -: Sudden Severity: moderate Pain Scale: 6 Consistency: constant - Related Data Allergies Allergy/AdvReac Type Severity Reaction Status Date / Time shellfish derived Allergy Swelling Verified 09/12/13 15:34 ED Review of Systems ROS: Stated complaint: JOSHUA Other details as noted in HPI Comment: All other systems reviewed and negative Constitutional: denies: chills, fever Respiratory: shortness of breath. denies: cough, orthopnea Cardiovascular: chest pain Gastrointestinal: denies: abdominal pain, nausea, vomiting, diarrhea, constipation, hematemesis, hematochezia Neurological: denies: headache, weakness, numbness, paresthesias ED Past Medical Hx - Past Medical History Hx Hypertension: Yes (was taking labetalol, then stopped, during ) Hx Congestive Heart Failure: No Hx Diabetes: No (gestational DM) Hx Deep Vein Thrombosis: No Hx Renal Disease: No Hx Sickle Cell Disease: No Hx Seizures: No Hx Asthma: Yes Hx COPD: No Hx Dementia: No Hx HIV: No Additional medical history: Morbid Obesity - Surgical History Past Surgical History?: Yes Additional Surgical History: C-sectionx2 - Social History Smoking Status: Never Smoker Substance Use Type: None ED Physical Exam - General Limitations: No Limitations General appearance: alert, in no apparent distress, anxious - Head Head exam: Present: atraumatic, normocephalic, normal inspection - Eye Eye exam: Present: normal appearance, PERRL - ENT ENT exam: Present: normal exam, normal orophraynx, mucous membranes moist - Neck Neck exam: Present: normal inspection, full ROM. Absent: tenderness, meningismus, lymphadenopathy, thyromegaly - Respiratory Respiratory exam: Present: normal lung sounds bilaterally. Absent: respiratory distress, wheezes, rales, rhonchi, stridor, chest wall tenderness, accessory muscle use, decreased breath sounds, prolonged expiratory - Cardiovascular Cardiovascular Exam: Present: regular rate, normal rhythm, normal heart sounds - GI/Abdominal GI/Abdominal exam: Present: soft, normal bowel sounds. Absent: distended, tenderness, guarding, rebound, rigid, organomegaly, mass, bruit, pulsatile mass , hernia - Extremities Exam Extremities exam: Present: normal inspection, full ROM, normal capillary refill - Back Exam Back exam: Present: normal inspection, full ROM. Absent: CVA tenderness (L) - Neurological Exam Neurological exam: Present: alert, oriented X3, CN II-XII intact, normal gait - Skin Skin exam: Present: warm, intact, normal color ED Course Vital Signs 05/20/17 05/21/17 05/21/17 23:33 00:00 00:50 Temperature 98.4 F Pulse Rate 81 Respiratory 18 18 Rate O2 Sat by Pulse 99 99 Oximetry - Reevaluation(s) Reevaluation #1: 05/21/17 02:40 Patient stated that she feel much better, her symptoms completely gone. No shortness of breath or chest pain. ED Medical Decision Making - Lab Data Result diagrams: 05/20/17 23:58 05/20/17 23:58 Critical care attestation.: If time is entered above; I have spent that time in minutes in the direct care of this critically ill patient, excluding procedure time. ED Disposition Clinical Impression: Shortness of breath, Panic attack Disposition: DC-01 TO HOME OR SELFCARE Is pt being admited?: No Condition: Stable Instructions: Anxiety (ED) Referrals: VIOLET MURPHY MD [Primary Care Provider] - 3-5 Days
[2017-05-21 00:10] LABS: Basophils % (Auto) 0.3 % (0.0-1.8); Eosinophils # (Auto) 0.1 K/mm3 (0.0-0.4); Eosinophils % (Auto) 0.6 % (0.0-4.3); Hematocrit 39.4 % (30.3-42.9); Hemoglobin 13.1 gm/dl (10.1-14.3); Lymphocytes # (Auto) 2.1 K/mm3 (1.2-5.4); Mean Corpuscular HGB Conc 33 % (30-34); Mean Corpuscular Hemoglobin 27 pg (28-32); Mean Corpuscular Volume 81 fl (79-97); Monocytes # (Auto) 0.4 K/mm3 (0.0-0.8); Monocytes % (Auto) 4.1 % (0.0-7.3); Platelet Count 236 K/mm3 (140-440); Red Blood Count 4.86 M/mm3 (3.65-5.03); Red Cell Distribution Width 14.3 % (13.2-15.2)
[2017-05-21 00:21] LABS: INR 0.95 (0.87-1.13)
[2017-05-21 00:22] LABS: Partial Thromboplastin Time 32.7 Sec. (24.2-36.6)
[2017-05-21] MEDS ORDERED: TYLENOL PO ONE (00:40)
[2017-05-21] MEDS ORDERED: TYLENOL ONE (00:46)
[2017-05-21 00:49] LABS: BUN/Creatinine Ratio 9; Blood Urea Nitrogen 8 mg/dL (7-17); Calcium 8.8 mg/dL (8.4-10.2); Hemolysis Index 2
[2017-05-21 02:49] VITALS: BP 136/114
== END 2017-05-21 02:50 | disposition home or self-care (01) ==
LOC: ED 23:29
DX: F41.0 Panic disorder [episodic paroxysmal anxiety] (principal); R06.02 Shortness of breath
CPT/HCPCS: 36415; 80048; 84484; 85025; 85379; 85610; 85730; 93005; 93010